=== PATIENT | female | born 1930 | race Caucasian/White ===

== ENCOUNTER 2019-07-05 13:29 | Emergency (ER) | payer MEDICARE, OTHER ==
[~2019-07-05] VITALS: Ht 162.6 cm; Wt 62.6 kg
--- OUTSIDE RECORDS SUMMARY | ~2019-07-05 | XMS | Clinical Summary ---
Demographics + + + | Address | [address] | | | [place] [address] | + + + | Home Phone | | + + + | Preferred Language | Unknown | + + + | Marital Status | Unknown | + + + | Pentecostalism Affiliation | Unknown | + + + | Race | Unknown | + + + | Ethnic Group | Unknown | + + + Author + + + | Author | [facility] | | | and [place] | + + + | Organization | [facility] | | | and [place] | + + + | Address | Unknown | + + + | Phone | Unavailable | + + + Care Team Providers + +------+ + | Care Pet Resort Concierge Name | Role | Phone | + +------+ + | Pop Rodriguez | | + +------+ + Allergies Not on File Medications Not on file Active Problems Not on file Family History + + +------+ + | Medical History | Relation | Name | Comments | + + +------+ + | Coronary artery | Father | | | | disease | | | | + + +------+ + | Hypertension | Mother | | and Dm | + + +------+ + + +------+ + + | Relation | Name | Status | Comments | + +------+ + + | Father | | | | + +------+ + + | Father | | | | + +------+ + + | Mother | | | | + +------+ + + | Mother | | | | + +------+ + + Social History + +-------+ +--------+------+ | Tobacco Use | Types | Packs/Day | Years | Date | | | | | Used | | + +-------+ +--------+------+ | Current Every Day | | | | | | Smoker | | | | | + +-------+ +--------+------+ + + + | Sex Assigned at | Date Recorded | | | | + + + | Not on file | | + + + + + + + | Job Start Date | Occupation | Industry | + + + + | Not on file | Not on file | Not on file | + + + + + + + + | Travel History | Travel Start | Travel End | + + + + + + | No recent travel history available. | + + Last Filed Vital Signs Not on file Plan of Treatment + + + + + | Health Maintenance | Due Date | Last Done | Comments | + + + + + | Vaccine: | | | | | Dtap/Tdap/Td (1 - | 0 | | | | Tdap) | | | | + + + + + | Vaccine: Zoster (1 | | | | | of 2) | 1 | | | + + + + + | Vaccine: | | | | | Pneumococcal 65+ | 6 | | | | Low/Medium Risk (1 | | | | | of 2 - PCV13) | | | | + + + + + | Vaccine: Influenza | | | | | (#1) | 9 | | | + + + + + Results Not on filefrom Last 3 Months Insurance + +--------+ +--------+ +---------+--------+ | Payer | Benefi | Subscriber | Effect | Phone | Address | Type | | | t Plan | ID | law | | | | | | / | | Dates | | | | | | Group | | | | | | + +--------+ +--------+ +---------+--------+ | MEDICARE | MEDICA | [id number] | | [phone] | | Medica | | | RE | | [phone]-[phone] | 5 | | re | | | PART A | | esent | | | | | | AND B | | | | | | + +--------+ +--------+ +---------+--------+ + +--------+ +--------+ + + | Guarantor Name | Accoun | Relation to | Date | Phone | Billing Address | | | t Type | Patient | of | | | | | | | | | | + +--------+ +--------+ + + | Laci Lazar | Person | Self | [birth year] | [address] | | | al/Fam | | 1930 | [phone] | [place] [address] | | | [place] | | | [address] (Home) | | + +--------+ +--------+ + +"
--- OUTSIDE RECORDS SUMMARY | ~2019-07-05 | XMS | Clinical Summary ---
Demographics + + + | Address | [address] | | | [place] [address] | + + + | Home Phone | | + + + | Preferred Language | Unknown | + + + | Marital Status | Unknown | + + + | Advent Affiliation | Unknown | + + + | Race | Unknown | + + + | Ethnic Group | Unknown | + + + Author + + + | Author | [facility] | | | and [place] | + + + | Organization | [facility] | | | and [place] | + + + | Address | Unknown | + + + | Phone | Unavailable | + + + Care Team Providers + +------+ + | Care First Officer And Flight Instructor Name | Role | Phone | + [...] +--------+ +---------+--------+ | MEDICARE | MEDICA | [id number] | | [phone] | | Medica | [...] | 1930 | [phone] | [place] [address] | | | [place] | | | 5 (Home) | | + +--------+ +--------+ + +"
--- OUTSIDE RECORDS SUMMARY | ~2019-07-05 | XMS | Clinical Summary ---
Demographics + + + | Address | [address] | | | [place] [address] | + + + | Home Phone | | + + + | Preferred Language | Unknown | + + + | Marital Status | | + + + | Pentecostal Affiliation | 1009 | + + + | Race | Unknown | + + + | Ethnic Group | Unknown | + + + Author + + + | Author | [facility] (Historical as of | | | 04-16-19) | + + + | Organization | [facility] (Historical as of | | | 04-16-19) | + + + | Address | Unknown | + + + | Phone | Unavailable | + + + Support + + + + + | Name | Relationship | Address | Phone | + + + + + | Darwin Boyle | ECON | [address] | | | | | [place] | | | | | [address] | | + + + + + Care Team Providers + +------+ + | Care Signal Engineer Name | Role | Phone | + +------+ + | Campos Rodriguez DO | PP | | + +------+ + Allergies + + + + + + | Active Allergy | Reactions | Severity | Noted | Comments | | | | | Date | | + + + + + + | Codeine | Hives | High | 11/17/19 | | | | | | 14 | | + + + + + + Current Medications + + +-------+---------+------+------+-------+ | Prescription | Sig. | Disp. | Refills | Star | End | Statu | | | | | | t | Date | s | | | | | | Date | | | + + +-------+---------+------+------+-------+ | aspirin 81 MG EC | Take 81 mg by mouth | | | | | Activ | | tablet | daily with | | | | | e | | | breakfast. | | | | | | + + +-------+---------+------+------+-------+ | calcium-vitamin D | Take 1 tablet by | | | | | Activ | | (CALCIUM 500+D) | mouth daily. | | | | | e | | 500-200 MG-UNIT per | | | | | | | | tablet | | | | | | | + + +-------+---------+------+------+-------+ | hydrOXYzine | Take 25 mg by mouth | | | | | Activ | | (ATARAX) 25 MG | 3 (three) times | | | | | e | | tablet | daily as needed. | | | | | | + + +-------+---------+------+------+-------+ | lisinopril | Take 10 mg by mouth | | | | | Activ | | (PRINIVIL,ZESTRIL) | daily. | | | | | e | | 10 MG tablet | | | | | | | + + +-------+---------+------+------+-------+ | metoprolol | Take 25 mg by mouth | | | | | Activ | | (LOPRESSOR) 25 MG | 2 (two) times daily. | | | | | e | | tablet | | | | | | | + + +-------+---------+------+------+-------+ | simvastatin | Take 40 mg by mouth | | | | | Activ | | (ZOCOR) 40 MG tablet | nightly. | | | | | e | + + +-------+---------+------+------+-------+ | Multiple Vitamin | Take 1 tablet by | | | | | Activ | | (MULTIVITAMIN) | mouth daily. | | | | | e | | tablet | | | | | | | + + +-------+---------+------+------+-------+ Active Problems + + + | Problem | Noted Date | + + + | Hyperlipidemia | | + + + | HTN (hypertension) | | + + + | CAD (coronary artery disease) | | + + + Family History + + +------+ + | Medical History | Relation | Name | Comments | + + +------+ + | Coronary Artery | Father | | | | Disease | | | | + + +------+ [...] | | | + +-------+ +--------+------+ + +---+---+---+ | Smokeless Tobacco: | | | | | Never Used | | | | + +---+---+---+ + + +---------+ + | Alcohol Use | Drinks/We | oz/Week | Comments | | | ek | | | + + +---------+ + | Yes | | | rarely | + + +---------+ + + + + | Sex Assigned at | Date Recorded | | | | + + + | Not on file | | + + + Last Filed Vital Signs + + + + | Vital Sign | Reading | Time Taken | + + + + | Blood Pressure | 140/80 | 12/04/2014 11:59 AM PDT | + + + + | Pulse | 72 | 12/04/2014 11:59 AM PDT | + + + + | Temperature | - | - | + + + + | Respiratory Rate | 18 | 12/04/2014 11:59 AM PDT | + + + + | Oxygen Saturation | 96% | 12/04/2014 11:59 AM PDT | + + + + | Inhaled Oxygen | - | - | | Concentration | | | + + + + | Weight | 63.5 kg (140 lb) | 12/04/2014 11:59 AM PDT | + + + + | Height | 162.6 cm (5' 4") | 12/04/2014 11:59 AM PDT | + + + + | Body Mass Index | 24.03 | 12/04/2014 11:59 AM PDT | + + + + Plan of Treatment + + + + [...] | + + + + + | DEXA SCAN SCREENING | | | | | | 6 | | | + + + + [...] filefrom Last 3 Months Insurance + +--------+ +------+-------+ + | Payer | Benefi | Subscriber | Type | Phone | Address | | | t Plan | ID | | | | | | / | | | | | | | Group | | | | | + +--------+ +------+-------+ + | MEDICARE | MEDICA | [id number] | | | [address] | | | RE | | | | [place] [address] | | | IP-OP | | | | | + +--------+ +------+-------+ + | AETNA | AETNA | [id number] | | | | | | GENERI | | | | | | | C | | | | | + +--------+ +------+-------+ + + +--------+ +--------+ + + | Guarantor Name | Accoun | Relation to | Date | Phone | Billing Address | | | t Type | Patient | of | | | | | | | | | | + +--------+ +--------+ + + | SHAMIR BOYLE | Person | Self [birth year] | Home: | [address] | | | al/Fam | | 1930 | [phone] [place] | | | [place] | | | [phone] | [phone] | + +--------+ +--------+ + +
--- OUTSIDE RECORDS SUMMARY | ~2019-07-05 | XMS | Clinical Summary ---
Demographics + + + | Address | [address] | | | [place] [address] | + + + | Home Phone | | + + + | Preferred Language | Unknown | + + + | Marital Status | | + + + | Episcopal Affiliation | 1009 | + + + | Race | Unknown | + + + | Ethnic Group | Unknown | + + + Author + + + | Author | [facility] (Historical as of | | | 04-16-19) | + + + | Organization | [facility] (Historical as of | | | 04-16-19) [...] [place] | | | | | [phone] | | + + + + + Care Team Providers + +------+ + | Care Sales Trader Name | Role | Phone | + [...] +------+-------+ + | MEDICARE | MEDICA | [id number] | | | [address] | | | RE | | | | [place] [address] | | | IP-OP | | | | | + +--------+ +------+-------+ + | AETNA | AETNA | [id number] | | | | | | GENERI [...] | | [place] | | | [phone] | [phone] | + +--------+ +--------+ + +
[~2019-07-05 13:29] MED LIST: ASPIRIN EC81 MG PO; ATORVASTATIN CA20 MG PO; CALCIUM500 M1 PO; CITRUCEL POWDE454 GM PO; COUMADIN2.5 MG PO; DILTIAZEM 24HR240 MG PO; FAMOTIDINE20 MG PO; HYDROCODON-ACE1 EA10 PO; HYDROXYZINE PAM25 MG PO; KEFLEX500 MG PO; LIPITOR20 MG PO; LISINOPRIL10 MG PO; LISINOPRIL20 MG PO; LISINOPRIL5 MG PO; MACROBID 100 M100 MG PO; MAG-OXIDE400 MG PO; METOPROLOL TART25 MG PO; MULTI VITAMIN1 EACH PO; NICOTINE PATCH1 EAC1 TD; VITAMIN D32000 UNIT PO; WARFARIN SODIUM5 MG PO; ZOCOR10 MG PO; ZOCOR40 MG PO
[2019-07-05] MEDS ORDERED: LEVAQUIN750 MG PO (16:33)
--- NOTE | 2019-07-05 20:25 | EKG ---
[facility] [address] [place], [place] [address] Signed Normal sinus rhythm Left anterior fascicular block Abnormal ECG No previous ECGs available Confirmed by CYNDI HOUGH DO ([id number]) on 07/05/2019 8:24:58 PM Electronically Signed By: CYNDI HOUGH DO 07/05/19 2025 PATIENT NAME: SHAMIR BOYLE Electrocardiogram DATE OF : [birth year] PHYSICIAN: CYNDI HOUGH DO REPORT #: [id number] REPORT IS CONFIDENTIAL AND NOT TO BE RELEASED WITHOUT AUTHORIZATION
== END 2019-07-05 16:59 | disposition home or self-care (01) ==
LOC: ED 13:29
DX: J18.9 Pneumonia, unspecified organism (principal); F17.200 Nicotine dependence, unspecified, uncomplicated; Z88.5 Allergy status to narcotic agent; Z79.899 Other long term (current) drug therapy; Z79.01 Long term (current) use of anticoagulants
CPT/HCPCS: 71046; 80053; 83605; 84484; 85025; 87502; 93005; 93010; 96360; 99284-25; 99406; J7030